=== PATIENT | female | born 1990 | race Caucasian/White ===

== ENCOUNTER 2017-03-18 18:26 | Emergency (ER) | payer BC ==
--- NOTE | 2017-03-18 18:56 | PD ---
HPI Chief Complaint Elevated BP Travel History International Travel<30 Days: No Contact w/Intl Traveler<30Days: No Known Affected Area: No History of Present Illness HPI 38w 0d. Presents for evaluation of elevated BP. Reports taking BP at work today and elevated 140s/80s. Denies ROBISON/blurry vision/RUQ pain. care with Dr. Pillai. History Past Medical History Medical History: Denies Significant Hx Past Surgical History Surgical History: No Previous Surgery Family History Family History: Negative Social History Alcohol Use: No Tobacco Use: No Substance Abuse: No Allergies-Medications (Allergen,Severity, Reaction): Coded Allergies: No Known Allergies (Unverified , 03/18/17) Comments NKDA Review of Systems Except as stated in HPI: all other systems reviewed are Neg Physical Exam AFVSS BP 141/80, 135/81 Narrative GENERAL: Well-nourished, well-developed patient. SKIN: Warm and dry. HEAD: Normocephalic and atraumatic. EYES: No scleral icterus. No injection or drainage. ENT: No nasal drainage noted. Mucous membranes pink. Airway patent. NECK: Supple, trachea midline. No JVD. CARDIOVASCULAR: Regular rate and rhythm without murmurs, gallops, or rubs. RESPIRATORY: Breath sounds equal bilaterally. No accessory muscle use. BREASTS: Bilateral exam showed no masses , no retractions, no nipple discharge. ABDOMEN/GI: Abdomen soft, non-tender, bowel sounds present, no rebound, no guarding Gravid to [-] weeks size Fundal Height: [-] GENITOURINARY: External Genitalia: intact and normal in appearance BUS glands: [-] Cervix: [-] Dilatation: [-] Effacement: [-] Station: [-] Presentation: [-] Membranes: [intact or ruptured] Uterine Contractions: [-] FHT's: Category: [1] Baseline: [140] Reactive: [yes] Variability: [moderate] Decels: [none] EXTREMITIES: No cyanosis or edema. 2+ DTR bilaterally. BACK: Nontender without obvious deformity. No CVA tenderness. NEUROLOGICAL: Awake and alert. Motor and sensory grossly within normal limits. Five out of 5 muscle strength in all muscle groups. Normal speech. Data Data Labs Laboratory Tests Test 03/18/17 03/18/17 18:50 19:05 Urine Color YELLOW Urine Turbidity HAZY Urine pH 7.5 Urine Specific [place] 1.018 Urine Protein TRACE mg/dL Urine Glucose (UA) NEG mg/dL Urine Ketones NEG mg/dL Urine Occult Blood NEG Urine Nitrite NEG Urine Bilirubin NEG Urine Urobilinogen LESS THAN 2.0 MG/DL Urine Leukocyte Esterase SMALL Urine RBC 1 /hpf Urine WBC 2 /hpf Urine Squamous Epithelial 9 /hpf Cells Urine Bacteria RARE /hpf Urine Mucus FEW /lpf Microscopic Urinalysis Comment CULT NOT INDICATED White Blood Count 11.4 TH/MM3 Red Blood Count 3.90 MIL/MM3 Hemoglobin 11.0 GM/DL Hematocrit 33.1 % Mean Corpuscular Volume 84.9 FL Mean Corpuscular Hemoglobin 28.1 PG Mean Corpuscular Hemoglobin 33.1 % Concent Red Cell Distribution Width 14.1 % Platelet Count 141 TH/MM3 Mean Platelet Volume 12.5 FL Neutrophils (%) (Auto) 79.3 % Lymphocytes (%) (Auto) 11.2 % Monocytes (%) (Auto) 9.2 % Eosinophils (%) (Auto) 0.3 % Basophils (%) (Auto) 0.0 % Neutrophils # (Auto) 9.0 TH/MM3 Lymphocytes # (Auto) 1.3 TH/MM3 Monocytes # (Auto) 1.0 TH/MM3 Eosinophils # (Auto) 0.0 TH/MM3 Basophils # (Auto) 0.0 TH/MM3 CBC Comment DIFF FINAL Differential Comment Sodium Level 140 MEQ/L Potassium Level 3.7 MEQ/L Chloride Level 104 MEQ/L Carbon Dioxide Level 21.7 MEQ/L Anion Gap 14 MEQ/L Blood Urea Nitrogen 7 MG/DL Creatinine 0.56 MG/DL Estimat Glomerular Filtration 131 ML/MIN Rate Random Glucose 81 MG/DL Uric Acid 4.7 MG/DL Calcium Level 8.6 MG/DL Total Bilirubin LESS THAN 0.1 MG/DL Aspartate Amino Transf 15 U/L (AST/SGOT) Alanine Aminotransferase 19 U/L (ALT/SGPT) Alkaline Phosphatase 127 U/L Lactate Dehydrogenase 183 U/L Total Protein 6.6 GM/DL Albumin 2.6 GM/DL [facility] Interpretation(s) 38w 0d for evaluation of elevated BP.n Will order Pre Eclampsia labs and obtain serial BPs. Pre Eclampsia precautions given to patient. Keep scheduled f/u in the morning. All questions answered. Diagnosis Diagnosis: Primary Impression: 38 weeks gestation of Additional Impression: Hypertension affecting in third trimester Disposition: 01 DISCHARGE HOME Condition: Stable Nola Craft MD Mar 18, 2017 18:56
[2017-03-18 19:33] LABS: EOSINOPHIL % 0.3 % (0.0-4.0); HEMATOCRIT 33.1 % (35.0-46.0); LYMPH % 11.2 % (9.0-44.0); LYMPHOCYTE # 1.3 TH/MM3 (1.0-4.8); MEAN CELL VOLUME 84.9 FL (80.0-100.0); MEAN CORPUSCULAR HEMOGLOBIN 28.1 PG (27.0-34.0); MEAN CORPUSCULAR HGB CONC 33.1 % (32.0-36.0); MONO % 9.2 % (0.0-8.0); NEUT % 79.3 % (16.0-70.0); PLATELET COUNT 141 TH/MM3 (150-450); RED CELL DISTRIBUTION WIDTH 14.1 % (11.6-17.2); WHITE BLOOD COUNT 11.4 TH/MM3 (4.0-11.0)
[2017-03-18 19:36] LABS: BACTERIA, URINE RARE /hpf; BLOOD, URINE NEG (NEG); COMMENT (UR) CULT NOT INDICATED; CULTURE IF INDICATED CULT NOT INDICATED; GLUCOSE,URINE NEG (NEG); KETONE, URINE NEG (NEG); MUCUS URINE FEW /lpf (OCC); NITRITE,URINE NEG (NEG); PH, URINE 7.5 (5.0-8.5); SQUAMOUS EPITHELIAL CELL URINE 9 /hpf (0-5); URINE COLOR YELLOW (YELLW/STRAW)
[2017-03-18 19:37] LABS: HEMO FLAGS DIFF FINAL
[2017-03-18 19:58] LABS: ANION GAP 14 MEQ/L (5-15); AST (GOT) 15 U/L (15-37); BICARBONATE 21.7 MEQ/L (21.0-32.0); BLOOD UREA NITROGEN 7 MG/DL (7-18); CHLORIDE 104 MEQ/L (98-107); GLOMERULAR FILTRATION RATE 131 ML/MIN (>89); POTASSIUM 3.7 MEQ/L (3.5-5.1); SODIUM (NA) 140 MEQ/L (136-145); URIC ACID 4.7 MG/DL (2.6-6.0)
[2017-03-18 19:59] LABS: ALT (GPT) 19 U/L (10-53)
[2017-03-18 20:01] LABS: ALKALINE PHOSPHATASE 127 U/L (45-117); LDH SERUM 183 U/L (84-246); TOTAL BILIRUBIN ADULT LESS THAN 0.1 MG/DL (0.2-1.0)
== END 2017-03-18 20:24 | disposition home or self-care (01) ==
LOC: HOBED 18:26
DX: O16.3 Unspecified maternal hypertension, third trimester (principal); Z3A.38 38 weeks gestation of pregnancy
CPT/HCPCS: 80053; 81001; 83615; 84550; 85025; 99283

== ENCOUNTER 2017-03-24 17:59 | Inpatient (IN) | payer BC ==
[~2017-03-24] VITALS: Ht 167.6 cm; Wt 79.4 kg
[2017-03-24] MEDS ORDERED: LACTATED RINGER'S 1000 ML INJ 1,000 ML IV PRN (18:22)
[2017-03-24] MEDS ORDERED: CITRIC ACID-SODIUM CITRATE LIQ 30 ML UDC PO SCH (18:30)
[2017-03-24] MEDS ORDERED: SODIUM CHLORIDE 0.9% FLUSH 10 ML FLUSH IV FLUSH PRN (18:30)
[2017-03-24] MEDS ORDERED: LIDOCAINE HCL 1% 50 ML VIAL INFIL PRN (18:30)
[2017-03-24] MEDS ORDERED: OXYTOCIN 30 UNITS-500ML PREMIX 500 ML IV ONE (18:30)
[2017-03-24] MEDS ORDERED: DINOPROSTONE 10 MG VAG INSERT VAGINAL ONE (18:30)
[2017-03-24] MEDS ORDERED: SODIUM CHLORID 0.9% 500 ML INJ 500 ML OTHER PRN (18:30)
[2017-03-24] MEDS ORDERED: MINERAL OIL 10 ML VIAL TOPICAL PRN (18:30)
[2017-03-24] MEDS ORDERED: LIDOCAINE HCL 1% 50 ML VIAL I-DERMAL PRN (18:30)
--- NOTE | 2017-03-24 18:32 | HHI.HP ---
HPI Chief Complaint iol for ghtn Date Seen: Mar 24, 2017 Travel History International Travel<30 Days: No Contact w/Intl Traveler<30Days: No Known Affected Area: No History of Present Illness HPI 27 yo G1 with iup at 38w6d here for iol for ghtn. She was seen in ED on 03/18 and noted to have elevated bp; pih labs negative at that time. She has been keeping home BP log and has been on modified bedrest. + FM, neg vb/lof, or reg ctx. Para: 0 : 1 History Past Medical History Medical History: Denies Significant Hx Obstetric History Obstetric History g1 Past Surgical History Narrative Surgical appendectomy Family History Family History: Negative Social History Alcohol Use: No Tobacco Use: No Substance Abuse: No Allergies-Medications (Allergen,Severity, Reaction): Coded Allergies: No Known Allergies (Unverified , 03/18/17) Review of Systems General / Constitutional: No: Fever, Weight Gain, Chills, Other Eyes: No: Diploplia, Blurred Vision, Visual changes, Pain, Photophobia HENT: No: Headaches, Vertigo, Lightheadedness Cardiovascular: No: Irregular Rhythm, Chest Pain or Discomfort, Palpitations, Tachycardia, Syncope, Varicosities, Edema, Cyanosis Respiratory: No: Cough, Short of Breath, Other Gastrointestinal: No: Nausea, Vomiting, Diarrhea Genitourinary: No: Decreased Urinary Output, Oliguria Musculoskeletal: No: Limited ROM, Weakness, Cramping, Edema, Pain Skin: No Rash, No Itching, No Dryness, No Lumps, No Change in Pigmentation, No Change in Nails, No Alopecia, No Lesions Neurologic: No: Weakness, Dizziness, Syncope, Focal Abnormalities, Coordination Problem, Headache, Slurred Speech, Seizures Psychiatric: No: Depression, Suicidal Ideations, Homicidal Ideation Endocrine: No: Heat Intolerance, Cold Intolerance, Polydipsia, Polyuria, Other Physical Exam Narrative GENERAL: Well-nourished, well-developed patient. SKIN: Warm and dry. HEAD: Normocephalic and atraumatic. EYES: No scleral icterus. No injection or drainage. ENT: No nasal drainage noted. Mucous membranes pink. Airway patent. NECK: Supple, trachea midline. No JVD. CARDIOVASCULAR: Regular rate and rhythm without murmurs, gallops, or rubs. RESPIRATORY: Breath sounds equal bilaterally. No accessory muscle use. . ABDOMEN/GI: Abdomen soft, non-tender, bowel sounds present, no rebound, no guarding Gravid to 37weeks size Fundal Height: [-] GENITOURINARY: External Genitalia: intact and normal in appearance BUS glands: [-] Cervix:ft/50/-2 Presentation: [facility] Membranes: [intact Uterine Contractions: [-] FHT's: Category: I EXTREMITIES: No cyanosis or edema. BACK: Nontender without obvious deformity. No CVA tenderness. NEUROLOGICAL: Awake and alert. Motor and sensory grossly within normal limits. Five out of 5 muscle strength in all muscle groups. Normal speech. Data Data Vital Signs Reviewed: Yes Orders Admit To Inpatient (03/24/17 ) Vital Signs (Adult) .Per protocol (03/24/17 18:22) Heart (03/24/17 18:) Amnioinfusion (03/24/17 18:) Urinary Catheter Management .ONCE (03/24/17 18:) Lactated Ringer's 1000 Ml Inj (Lr 1000 M (03/24/17 18:22) Lactated Ringer's 1000 Ml Inj (Lr 1000 M (03/24/17 18:22) Sodium Chlorid 0.9% 500 Ml Inj (Ns 500 M (03/24/17 18:30) Sodium Chlor 0.9% 1000 Ml Inj (Ns 1000 M (03/24/17 18:42) Lidocaine 1% Inj (50 Ml) (Xylocaine 1% I (03/24/17 18:30) Citric Acid-Sodium Citrate Liq (Bicitra (03/24/17 18:30) Fentanyl Inj (Fentanyl Inj) (03/24/17 18:30) Fentanyl Inj (Fentanyl Inj) (03/24/17 18:30) Complete Blood Count With Diff (03/24/17 18:) Hold Clot (03/24/17 18:) Abo/Rh Blood Type (03/24/17 18:) Urinalysis - C+S If Indicated (03/24/17 18:22) Resp Oxygen Non Rebreathe Mask (03/24/17 ) ^ Epidural / Intrathecal Infus (03/24/17 18:22) Oxytocin 30 Units-500ml Premix (Pitocin (03/24/17 18:30) Lidocaine 1% Inj (50 Ml) (Xylocaine 1% I (03/24/17 18:30) Light Mineral Oil (Muri-Lube Oil) (03/24/17 18:30) Admit To Inpatient (03/24/17 ) Diet Regular Basic (03/24/17 Dinner) Activity Oob Ad Marilin (03/24/17 18:22) ^ Labor Induction (03/24/17 18:22) ^ Vaginal Insert (03/24/17 18:22) ^ Vaginal Lavage (03/24/17 18:22) Heart (03/24/17 18:22) Assessment/Plan Problem List: (1) Hypertension affecting in third trimester (2) 38 weeks gestation of Assessment and Plan 27 yo G1 with iup at 38w6d here for iol for ghtn 1)IOL will start with cervidil overnight. then arom/pitocin as needed 2) GHTN- pih labs ordered 3) GBS negative 4) fetus- cephalic . EFW 7.5 - 8lb Janel Pillai MD Mar 24, 2017 18:32
[2017-03-24] MEDS ORDERED: SODIUM CHLOR 0.9% 1000 ML INJ 1,000 ML OTHER PRN (18:42)
[2017-03-24] MEDS: LACTATED RINGER'S 1000 ML INJ 1,000 ML IV SCH (19:35)
[2017-03-24 19:48] LABS: AUTOMATED NEUTROPHIL # 9.3 TH/MM3 (1.8-7.7); BASOPHIL % 0.3 % (0.0-2.0); EOSINOPHIL # 0.1 TH/MM3 (0-0.4); EOSINOPHIL % 0.6 % (0.0-4.0); HEMATOCRIT 33.1 % (35.0-46.0); LYMPH % 11.6 % (9.0-44.0); LYMPHOCYTE # 1.4 TH/MM3 (1.0-4.8); MEAN CELL VOLUME 85.6 FL (80.0-100.0); MEAN CORPUSCULAR HEMOGLOBIN 28.1 PG (27.0-34.0); MEAN CORPUSCULAR HGB CONC 32.8 % (32.0-36.0); MONO % 8.1 % (0.0-8.0); NEUT % 79.4 % (16.0-70.0); PLATELET COUNT 141 TH/MM3 (150-450); RED BLOOD COUNT 3.87 MIL/MM3 (4.00-5.30); WHITE BLOOD COUNT 11.7 TH/MM3 (4.0-11.0)
[2017-03-24 19:51] LABS: BLOOD, URINE NEG (NEG); GLUCOSE,URINE NEG (NEG); KETONE, URINE NEG (NEG); MUCUS URINE FEW /lpf (OCC); NITRITE,URINE NEG (NEG); PH, URINE 6.5 (5.0-8.5); SQUAMOUS EPITHELIAL CELL URINE 4 /hpf (0-5); URINE COLOR YELLOW (YELLW/STRAW)
[2017-03-24 19:51] LABS: HEMO FLAGS AUTO DIFF
[2017-03-24 19:52] LABS: COMMENT (UR) CULT NOT INDICATED; CULTURE IF INDICATED CULT NOT INDICATED
[2017-03-24 20:17] LABS: PLATELET ESTIMATE SMEAR LOW (NORMAL); PLATELET MORPHOLOGY GIANT (NORMAL); SCAN/DIFF AUTO DIFF CONFIRMED
[2017-03-24 20:20] LABS: ANION GAP 13 MEQ/L (5-15); AST (GOT) 16 U/L (15-37); BICARBONATE 20.5 MEQ/L (21.0-32.0); BLOOD UREA NITROGEN 9 MG/DL (7-18); CHLORIDE 107 MEQ/L (98-107); GLOMERULAR FILTRATION RATE 164 ML/MIN (>89); POTASSIUM 3.8 MEQ/L (3.5-5.1); SODIUM (NA) 140 MEQ/L (136-145); URIC ACID 4.9 MG/DL (2.6-6.0)
[2017-03-24 20:24] VITALS: BP 137/73; PULSE 85
[2017-03-24 20:24] LABS: ALKALINE PHOSPHATASE 127 U/L (45-117); ALT (GPT) 16 U/L (10-53); TOTAL BILIRUBIN ADULT 0.1 MG/DL (0.2-1.0)
[2017-03-24 20:30] VITALS: RESP 18
[2017-03-24] MEDS ORDERED: SODIUM CHLORIDE 0.9% FLUSH 10 ML FLUSH IV FLUSH SCH (21:00)
[2017-03-24 22:37] VITALS: BP 123/76; PULSE 75
[2017-03-24 22:45] VITALS: RESP 18; TEMP 98.3
[2017-03-24] MEDS ORDERED: FERR324T4 PO (23:05)
[2017-03-24] MEDS ORDERED: PREN29TA PO (23:05)
[2017-03-24] MEDS ORDERED: FOLI400T PO (23:05)
[2017-03-25] VITALS (43 sets, daily range): BP systolic 115–141; BP diastolic 63–91; PULSE 78–111; RESP 8–18; TEMP 97.6–98.5
[2017-03-25] MEDS: LACTATED RINGER'S 1000 ML INJ 1,000 ML IV SCH ×2 (06:49→12:00)
[2017-03-25] MEDS ORDERED: SODIUM CHLOR 0.9% 1000 ML INJ 1,000 ML OTHER PRN (08:22)
--- NOTE | 2017-03-25 08:25 | PD.LABORPN ---
Subjective Subjective doing well Objective Vital Signs Vital Signs Date Time Temp Pulse Resp B/P Pulse Ox O2 Delivery O2 Flow Rate FiO2 03/25/17 06:46 18 03/25/17 06:45 86 130/79 03/25/17 04:38 98.4 18 03/25/17 04:37 79 122/71 03/25/17 02:30 16 03/25/17 02:28 84 115/66 03/25/17 02:28 98.2 03/25/17 01:00 18 03/25/17 00:56 84 130/77 Objective Pelvic Exam: Cervix:ft/50/-2, posterior, medium consistency Presentation: ceph Membranes: [intact Uterine Contractions: irreg FHT's: Category:I Decels: [-] Assessment/Plan Problem List: (1) Hypertension affecting in third trimester (2) 38 weeks gestation of Assessment and Plan 27 G1 at 39 wk 1) IOL- no change with cervidil, will give one dose of misoprostol and then pit/ arom as needed 2) GHTN- bp wnl, tr protein, plt 141, all other labs wnl Janel Pillai MD Mar 25, 2017 08:25
[2017-03-25] MEDS ORDERED: MISOPROSTOL 25 MCG SUPP VAGINAL ONE (08:30)
--- NOTE | 2017-03-25 13:35 | PD.LABORPN ---
Subjective Subjective starting to feel more contractions after miso Objective Vital Signs Vital Signs Date Time Temp Pulse Resp B/P Pulse Ox O2 Delivery O2 Flow Rate FiO2 03/25/17 08:44 79 137/80 03/25/17 06:46 18 03/25/17 06:45 86 130/79 Objective Pelvic Exam: Cervix: 2/50/-2 posterior Presentation: ceph Membranes: arom clear Uterine Contractions: 2-5 FHT's: Category: I Baseline:130 Reactive: y Variability: mod Decels: [-] Assessment/Plan Problem List: (1) Hypertension affecting in third trimester (2) 38 weeks gestation of Assessment and Plan 27 G1 at 39 wk 0 d today, admitted last night for iol for ghtn 1) IOL- no change with cervidil, s/p one dose of misoprostol pv. AROM this check and start pitocin 2) GHTN- bp wnl, tr protein, plt 141, all other labs wnl Janel Pillai MD Mar 25, 2017 13:35
[2017-03-25] MEDS ORDERED: OXYTOCIN 30 UNITS-500ML PREMIX 500 ML IV SCH (14:00)
[2017-03-25] MEDS ORDERED: DIPHTH/TETANUS/ACEL PERTUSSIS (BOOSTER) 0.5 ML VIAL/PFS IM ONE (16:00)
[2017-03-25] MEDS ORDERED: MEASLES, MUMPS, RUBELLA VACCINE 0.5 ML VIAL SQ ONE (16:00)
[2017-03-25] MEDS ORDERED: NO SYSTEM NARCOTICS PRN (17:45)
[2017-03-25] MEDS ORDERED: fentaNYL 2MCG-BUPIV 0.125% 100 ML EPIDURAL SCH (17:45)
[2017-03-25] MEDS ORDERED: ePHEDrine/NS 25 MG/5 ML SYR IV PRN (17:45)
[2017-03-25] MEDS ORDERED: DO NOT ADMINISTER ANTICOAGULANTS PRN (17:45)
[2017-03-25] MEDS ORDERED: LIDOCAINE HCL 1.5% PF SOLN 20 ML AMP ONE (21:11)
[2017-03-25] MEDS ORDERED: ONDANSETRON HCL 4 MG/2 ML VIAL ONE (22:16)
--- NOTE | 2017-03-25 23:27 | PD.OB.DELI ---
Anesthesia: Epidural Episiotomy: Midline Vaginal Delivery: Vacuum Presentation: Occiput anterior Nuchal Cord: None Infant: Male One Minute : 8 Five Minute : 8 Weight: 7 7 Placenta: Spontaneous delivery Laceration: 2 deg Repair: Chromic interrupted (vacuum used for maternal exhaustion) Lara Watson MD Mar 25, 2017 23:27
[2017-03-25] MEDS ORDERED: ALUMINUM/MAGNESIUM/SIMETH 30 ML CUP PO PRN (23:30)
[2017-03-25] MEDS ORDERED: SODIUM CHLORIDE 0.9% FLUSH 10 ML FLUSH IV FLUSH PRN (23:30)
[2017-03-25] MEDS ORDERED: ZOLPIDEM TARTRATE 5 MG TAB PO PRN (23:30)
[2017-03-25] MEDS ORDERED: ONDANSETRON ODT 4 MG TAB PO PRN (23:30)
[2017-03-25] MEDS ORDERED: WITCH HAZEL 50%/GLYCERIN 12.5% 40 PAD JAR TOPICAL PRN (23:30)
[2017-03-25] MEDS ORDERED: BENZOCAINE 20% TOPICAL SPRAY 60 ML CAN TOPICAL PRN (23:30)
[2017-03-26 00:27] VITALS: BP 127/77; PULSE 99
[2017-03-26 00:30] VITALS: BP 130/78; PULSE 103; RESP 18
[2017-03-26 00:32] VITALS: RESP 18
[2017-03-26] MEDS: IBUPROFEN 600 MG TAB PO PRN ×3 (00:40→15:29)
[2017-03-26] MEDS: oxyCODONE/ACETAMINOPHEN 5 MG/325 MG TAB PO PRN ×4 (00:45→19:35)
[2017-03-26] MEDS ORDERED: oxyCODONE/ACETAMINOPHEN 5 MG/325 MG TAB PO PRN (00:45)
[2017-03-26 01:43] VITALS: BP 116/74; PULSE 96; RESP 14; TEMP 98.1
[2017-03-26] MEDS ORDERED: SODIUM CHLORIDE 0.9% FLUSH 10 ML FLUSH IV FLUSH SCH (09:00)
[2017-03-26] MEDS: DOCUSATE SODIUM 50 MG/SENNA 8.6 MG TAB PO PRN (09:15)
[2017-03-26] MEDS: ACETAMINOPHEN 325 MG TAB PO PRN (09:16)
--- NOTE | 2017-03-26 12:57 | HHI.OB ---
Subjective Post Day: 1 Remarks s/p VAVD Objective Vitals/I&O Vital Signs Date Time Temp Pulse Resp B/P Pulse Ox O2 Delivery O2 Flow Rate FiO2 03/26/17 01:43 98.1 96 14 116/74 03/26/17 00:32 18 03/26/17 00:30 103 130/78 03/26/17 00:30 18 03/26/17 00:27 99 127/77 03/25/17 23:45 18 03/25/17 23:15 18 03/25/17 22:15 18 03/25/17 22:00 82 126/78 03/25/17 21:31 18 03/25/17 21:30 100 134/84 03/25/17 21:09 18 03/25/17 21:00 86 119/70 03/25/17 20:42 18 03/25/17 20:30 85 125/70 03/25/17 20:13 98.5 03/25/17 20:12 18 03/25/17 20:00 100 135/84 03/25/17 19:45 18 03/25/17 19:30 100 124/90 03/25/17 19:13 18 03/25/17 19:00 96 133/88 03/25/17 18:30 91 127/84 03/25/17 18:00 101 122/80 03/25/17 17:58 92 124/77 03/25/17 17:39 18 03/25/17 17:32 18 03/25/17 17:32 97.6 8 03/25/17 17:30 78 130/74 03/25/17 17:20 81 126/70 03/25/17 17:15 78 128/63 03/25/17 17:04 18 03/25/17 17:00 106 136/83 03/25/17 17:00 96 03/25/17 16:57 91 122/79 03/25/17 16:55 102 03/25/17 16:50 100 03/25/17 16:45 111 03/25/17 14:21 98.1 03/25/17 14:20 83 18 138/79 03/25/17 13:40 18 03/25/17 13:32 78 141/91 Objective Remarks GENERAL: Well-nourished, well-developed patient. CARDIOVASCULAR: Regular rate and rhythm without murmurs, gallops, or rubs. RESPIRATORY: Breath sounds equal bilaterally. No accessory muscle use. ABDOMEN/GI: Abdomen soft, non-tender. Fundus: Firm, non-tender at umbilicus. GENITOURINARY: Light to moderate bleeding. EXTREMITIES: No cyanosis or edema, non-tender, without signs of DVT. Medications and IVs Current Medications Medications (Trade) Dose Ordered Sig/Freda Route Start Time Stop Time Status Last Admin (NS Flush) 2 ml BID IV FLUSH 03/26/17 09:00 (NS Flush) 2 ml UNSCH PRN IV FLUSH 03/25/17 23:30 (Tylenol) 650 mg Q4H PRN PO 03/25/17 23:30 03/26/17 09:16 (Motrin) 600 mg Q6H PRN PO 03/25/17 23:30 03/26/17 09:15 (Americaine 20% Top Spr) 1 spray Q4H PRN TOPICAL 03/25/17 23:30 03/26/17 00:49 (Tucks Pads) 1 applic QID PRN TOPICAL 03/25/17 23:30 03/26/17 00:49 (Zainab-Colace) 2 tab Q12H PRN PO 03/25/17 23:30 03/26/17 09:15 (Ambien) 5 mg HS PRN PO 03/25/17 23:30 (Mag-Al Plus Susp Liq) 15 ml Q8H PRN PO 03/25/17 23:30 (Zofran Odt) 4 mg Q6H PRN PO 03/25/17 23:30 (Percocet 5-325 Mg) 1 tab Q4H PRN PO 03/26/17 00:45 03/26/17 05:02 (Percocet 5-325 Mg) 2 tab Q4H PRN PO 03/26/17 00:45 Assessment/Plan Problem List: (1) Status post vacuum-assisted vaginal delivery (2) Hypertension affecting in third trimester (3) 38 weeks gestation of Assessment and Plan 27 yo s/p VAVD at 39 wks, induced for GHTN with iup at 38w6d here for iol for ghtn doing well, BP normal-mild range routine d/c planning infant for circ tmrw prior to d/c Discharge Planning routine Jennifer Carranza MD Mar 26, 2017 12:57
[2017-03-26 19:32] VITALS: BP 118/81; PULSE 89; RESP 14; TEMP 98.2
[2017-03-27] MEDS: DOCUSATE SODIUM 50 MG/SENNA 8.6 MG TAB PO PRN (02:02)
[2017-03-27] MEDS: oxyCODONE/ACETAMINOPHEN 5 MG/325 MG TAB PO PRN (02:02)
[2017-03-27] MEDS: IBUPROFEN 600 MG TAB PO PRN ×2 (02:02→07:54)
[2017-03-27] MEDS: ACETAMINOPHEN 325 MG TAB PO PRN (07:55)
[2017-03-27 08:20] VITALS: BP 113/78; PULSE 80; RESP 16; TEMP 97.9
[2017-03-27] MEDS ORDERED: IBUP-232 PO (10:02)
--- NOTE | 2017-03-27 10:02 | HHI.DCPOC ---
Discharge Care Plan Report Symptoms to Your Doctor -Temperature above 100.5 degrees -Redness, of incision or excessive or foul smelling drainage -Unusual pain or calf pain -Increased vaginal bleeding -Painful or difficulty urinating -Feelings of extreme sadness or anxiety after 2 weeks Goals to Promote Your Health * To prevent worsening of your condition and complications * To maintain your health at the optimal level Directions to Meet Your Goals Take your medications as prescribed Follow your dietary instruction Follow activity as directed Ensure plenty of rest for recovery Drink fluids for hydration Keep your appointments as scheduled Take your immunizations and boosters as scheduled If your symptoms worsen call your PCP, if no PCP go to Urgent Care Center or Emergency Room Smoking is Dangerous to Your Health. Avoid second hand smoke Call the 24-hour crisis hotline for domestic abuse at Lara Watson MD Mar 27, 2017 10:02
--- NOTE | 2017-03-27 10:04 | PD.PN.STU ---
Subjective Remarks PPD2 of baby boy at EGA 35/2 Doing well. +eating +urinating +flatulence - BM pain 2-5/10 through the night - well managed with percocet prn breast feeding without difficulty Objective Vitals Vital Signs Date Time Temp Pulse Resp B/P Pulse Ox O2 Delivery O2 Flow Rate FiO2 03/26/17 19:32 98.2 89 14 118/81 Result Diagram: 03/24/17 1828 03/24/17 1810 Objective Remarks general - normal mood and affect breast - engorged, non-erythematous extremities - no edema A/P Assessment and Plan 1. Normal PPD2 - discharge today, ibuprofen as needed for pain; f/u in office 6 weeks or as needed 2. Grade 2 episiotomy - no irritation or pruritus; suture should dissolve 4-6 weeks, f/u as needed if concerns 3. Breast feeding - breast engorged expectantly, web consultant visited PPD1; counselled pt on f/u as needed if concerns of infection arise. f/u return to office in 6 weeks Dinora Ayala M3 Mar 27, 2017 10:04
== END 2017-03-27 12:47 | disposition home or self-care (01) | DRG 775 ==
LOC: H2EB 17:59 → H1EA 03-26 01:31
PROVIDERS: ADMIT Obstetrics & Gynecology; ATTEND Obstetrics & Gynecology
PROC: 3E033VJ Introduction of Other Hormone into Peripheral Vein, Percutaneous Approach (ICD-10-PCS; principal; 2017-03-25)
PROC: 10D07Z6 Extraction of Products of Conception, Vacuum, Via Natural or Artificial Opening (ICD-10-PCS; 2017-03-25)
PROC: 0KQM0ZZ Repair Perineum Muscle, Open Approach (ICD-10-PCS; 2017-03-25)
PROC: 3E0P7GC Introduction of Other Therapeutic Substance into Female Reproductive, Via Natural or Artificial Opening (ICD-10-PCS; 2017-03-25)
PROC: 10907ZC Drainage of Amniotic Fluid, Therapeutic from Products of Conception, Via Natural or Artificial Opening (ICD-10-PCS; 2017-03-25)
PROC: 0W8NXZZ Division of Female Perineum, External Approach (ICD-10-PCS; 2017-03-25)
DX: O13.4 Gestational [pregnancy-induced] hypertension without significant proteinuria, complicating childbirth (principal); O75.81 Maternal exhaustion complicating labor and delivery; O70.1 Second degree perineal laceration during delivery; Z37.0 Single live birth; Z3A.38 38 weeks gestation of pregnancy
CPT/HCPCS: 59025; 76815; 80053; 81001; 84550; 85025; 86900; 86901; J2405; J2590; J7120